=== PATIENT | female | born 1955 | race Caucasian/White ===

== ENCOUNTER 2024-05-08 10:59 | Outpatient (CLI) | payer MEDICARE, BC, OTHER, SELFPAY | END 2024-05-08 11:00 | disposition home or self-care (01) | LOC: ANHAUDASC 11:00 | PROVIDERS: PCP Otolaryngology; Visit Provider Otolaryngology | DX: H69.90 Unspecified Eustachian tube disorder, unspecified ear (principal); H90.3 Sensorineural hearing loss, bilateral | CPT/HCPCS: 92557; 92567 ==

== ENCOUNTER 2025-08-06 13:44 | Outpatient (CLI) | payer MEDICARE, BC, OTHER, SELFPAY | END 2025-08-06 13:45 | disposition home or self-care (01) | LOC: ANHAUDIO 13:45 | PROVIDERS: PCP Family Medicine; Visit Provider Otolaryngology | DX: H90.42 Sensorineural hearing loss, unilateral, left ear, with unrestricted hearing on the contralateral side (principal); H93.13 Tinnitus, bilateral; H74.92 Unspecified disorder of left middle ear and mastoid | CPT/HCPCS: 92557; 92567 ==